=== PATIENT | female | born 1960 | race Caucasian/White ===

== ENCOUNTER → 2018-01-13 13:51 | Outpatient (CLI) | payer MEDICARE, SELFPAY ==
[2018-01-13 14:58] LABS: Amphetamine Urine VISTA NEGATIVE (<1000 ng/mL); Barbiturate Urine VISTA NEGATIVE (< 200 ng/mL); Benzodiazepine Urine VISTA NEGATIVE (< 200 ng/mL); Cocaine Urine VISTA NEGATIVE (< 300 ng/mL); Ecstacy Urine VISTA NEGATIVE (< 500 ng/mL); Methadone Urine VISTA NEGATIVE (< 300 ng/mL); PCP Urine VISTA NEGATIVE (< 25 ng/mL); THC Urine VISTA NEGATIVE (< 50 ng/mL); Vista UDS pH Range 6
== END ==
PROVIDERS: Family Provider Family Medicine; PCP Family Medicine; Visit Provider Anesthesiology Pain Medicine
DX: F11.20 Opioid dependence, uncomplicated (principal)
CPT/HCPCS: 80307

== ENCOUNTER → 2018-07-06 11:54 | Outpatient (CLI) | payer MEDICARE, SELFPAY ==
--- NOTE | 2018-07-06 12:00 | RAD_ITS ---
STUDY: X-RAY - RIGHT KNEE REASON FOR EXAM: Chronic pain. TECHNIQUE: 2 view(s) of the knee. COMPARISON: None. FINDINGS: Normal visualized distal femur. Normal visualized proximal tibia and fibula. Normal proximal tibiofibular articulation. Normal medial femorotibial compartment. Normal lateral femorotibial compartment. Normal patellofemoral articulation. The soft tissue structures are unremarkable. RAD/Knee 1 or 2 Views IMPRESSION: Normal x-ray examination of the right knee. Electronically Signed: Jasen Emery MD at 12:34 EDT Tel , Service support ,
== END ==
PROVIDERS: Family Provider Family Medicine; PCP Family Medicine; Visit Provider Anesthesiology Pain Medicine
DX: M25.561 Pain in right knee (principal)
CPT/HCPCS: 73560

== ENCOUNTER → 2018-08-30 11:39 | Outpatient (CLI) | payer MEDICARE, SELFPAY ==
[2018-08-30 12:38] LABS: Amphetamine Urine VISTA NEGATIVE (<1000 ng/mL); Barbiturate Urine VISTA NEGATIVE (< 200 ng/mL); Benzodiazepine Urine VISTA POSITIVE (< 200 ng/mL); Cocaine Urine VISTA NEGATIVE (< 300 ng/mL); Ecstacy Urine VISTA NEGATIVE (< 500 ng/mL); Methadone Urine VISTA NEGATIVE (< 300 ng/mL); PCP Urine VISTA NEGATIVE (< 25 ng/mL); THC Urine VISTA NEGATIVE (< 50 ng/mL); Vista UDS pH Range 6
== END ==
PROVIDERS: Family Provider Family Medicine; PCP Family Medicine; Referring Provider Anesthesiology Pain Medicine; Visit Provider Anesthesiology Pain Medicine
DX: F11.20 Opioid dependence, uncomplicated (principal)
CPT/HCPCS: 80307

== ENCOUNTER → 2019-03-15 | Outpatient (CLI) | payer MEDICARE, SELFPAY ==
[2018-05-13 15:50] VITALS: BMI 33.2
--- NOTE | 2019-03-15 11:49 | RAD_ITS ---
STUDY: X-RAY - PELVIS AND LEFT HIP REASON FOR EXAM: Female, 58 years old. Hip pain with history of prior lumbar spine surgery TECHNIQUE: 3 views of the pelvis and hip. COMPARISON: None. FINDINGS: There is a non-specific bowel gas pattern. Normal visualized soft tissue structures. Normal bilateral iliac wings, sacroiliac joints and visualized sacrum. Normal bilateral superior and inferior pubic rami. Normal pubic symphysis. Normal bilateral ischial tuberosities. Normal visualized femoral head. Normal acetabulum. Normal hip joint. RAD/HIP, UNI W/ Pelvis 2-3 Views IMPRESSION: Normal x-ray examination of the pelvis and hip. Electronically Signed: Jon Valencia MD at 17:22 EDT , Service support ,
== END | disposition home or self-care (01) ==
PROVIDERS: Family Provider Family Medicine; PCP Family Medicine; Referring Provider Anesthesiology Pain Medicine; Visit Provider Anesthesiology Pain Medicine
DX: M25.552 Pain in left hip (principal)
CPT/HCPCS: 73502

== ENCOUNTER → 2019-08-21 | Outpatient (CLI) | payer MEDICARE, SELFPAY ==
[2019-08-21 12:58] VITALS: BMI 33.2
[2019-08-21 14:47] LABS: Mucous, Urine 0 SEEN /hpf (<or=2+); Red Blood Cells-Urine 0 SEEN /hpf (0-5); Squamous Epithelial Cells - UA 0 SEEN /hpf (5-10); White Blood Cells 0 SEEN /hpf (0-5)
[2019-08-21 14:53] LABS: Color, Urine Yellow (Yellow); Glucose, Dipstick Normal (Normal); Ketone-Dipstick Negative (Negative); Leukocyte Esterase-Dipstick 25 /ul (Negative); Nitrite-Dipstick Negative (Negative); Occult Blood-Urine Negative /ul (Negative); Protein-Dipstick Negative (Negative); Urine Bilirubin Dipstick Negative (Negative); Urine Clarity Clear (Clear); Urine Urobilinogen 1 mg/dl (Normal)
[2019-08-21 14:59] LABS: Bacteria RARE /hpf (None Seen); Calcium Oxalate Crystals Ur 1+ /hpf (<or=2+)
== END | disposition home or self-care (01) ==
LOC: LABSPEC 14:01
PROVIDERS: Family Provider Family Medicine; PCP Family Medicine; Referring Provider Physician Assistant; Visit Provider Physician Assistant
DX: R30.0 Dysuria (principal)
CPT/HCPCS: 81001; 87086

== ENCOUNTER → 2020-10-23 13:52 | Outpatient (CLI) | payer MEDICARE, MEDICAID, SELFPAY ==
[2019-08-21 12:58] VITALS: BMI 33.2
[2020-10-23 15:24] LABS: Amphetamine Urine VISTA NEGATIVE (<1000 ng/mL); Barbiturate Urine VISTA NEGATIVE (< 200 ng/mL); Benzodiazepine Urine VISTA NEGATIVE (< 200 ng/mL); Cocaine Urine VISTA NEGATIVE (< 300 ng/mL); Ecstacy Urine VISTA NEGATIVE (< 500 ng/mL); Methadone Urine VISTA NEGATIVE (< 300 ng/mL); PCP Urine VISTA NEGATIVE (< 25 ng/mL); THC Urine VISTA NEGATIVE (< 50 ng/mL); Vista UDS pH Range 6
== END ==
PROVIDERS: PCP Family Medicine; Referring Provider Anesthesiology Pain Medicine; Visit Provider Anesthesiology Pain Medicine
DX: F11.20 Opioid dependence, uncomplicated (principal)
CPT/HCPCS: 80307

== ENCOUNTER → 2021-03-12 15:29 | Outpatient (CLI) | payer MEDICARE, MEDICAID, SELFPAY ==
[2019-08-21 12:58] VITALS: BMI 33.2
[2021-03-12 16:43] LABS: Amphetamine Urine VISTA NEGATIVE (<1000 ng/mL); Barbiturate Urine VISTA NEGATIVE (< 200 ng/mL); Benzodiazepine Urine VISTA NEGATIVE (< 200 ng/mL); Cocaine Urine VISTA NEGATIVE (< 300 ng/mL); Ecstacy Urine VISTA NEGATIVE (< 500 ng/mL); Methadone Urine VISTA NEGATIVE (< 300 ng/mL); PCP Urine VISTA NEGATIVE (< 25 ng/mL); THC Urine VISTA NEGATIVE (< 50 ng/mL); Vista UDS pH Range 5
== END ==
PROVIDERS: PCP Family Medicine; Referring Provider Anesthesiology Pain Medicine; Visit Provider Anesthesiology Pain Medicine
DX: F11.20 Opioid dependence, uncomplicated (principal)
CPT/HCPCS: 80307

== ENCOUNTER → 2022-03-30 | Outpatient (CLI) | payer MEDICARE, MEDICAID, SELFPAY ==
[2022-03-30 13:37] LABS: Amphetamine Urine VISTA NEGATIVE (<1000 ng/mL); Barbiturate Urine VISTA NEGATIVE (< 200 ng/mL); Benzodiazepine Urine VISTA NEGATIVE (< 200 ng/mL); Cocaine Urine VISTA NEGATIVE (< 300 ng/mL); Ecstacy Urine VISTA NEGATIVE (< 500 ng/mL); Methadone Urine VISTA NEGATIVE (< 300 ng/mL); PCP Urine VISTA NEGATIVE (< 25 ng/mL); THC Urine VISTA NEGATIVE (< 50 ng/mL); Vista UDS pH Range 6
== END | disposition home or self-care (01) ==
PROVIDERS: PCP Family Medicine; Visit Provider Anesthesiology Pain Medicine
DX: F11.20 Opioid dependence, uncomplicated (principal)
CPT/HCPCS: 80307

== ENCOUNTER → 2022-09-08 | Outpatient (CLI) | payer MEDICARE, MEDICAID, SELFPAY ==
[2022-09-08 11:17] LABS: Amphetamine Urine VISTA NEGATIVE (<1000 ng/mL); Barbiturate Urine VISTA NEGATIVE (< 200 ng/mL); Benzodiazepine Urine VISTA NEGATIVE (< 200 ng/mL); Cocaine Urine VISTA NEGATIVE (< 300 ng/mL); Ecstacy Urine VISTA NEGATIVE (< 500 ng/mL); Methadone Urine VISTA NEGATIVE (< 300 ng/mL); PCP Urine VISTA NEGATIVE (< 25 ng/mL); THC Urine VISTA NEGATIVE (< 50 ng/mL); Vista UDS pH Range 5
== END | disposition home or self-care (01) ==
PROVIDERS: PCP Family Medicine; Referring Provider Anesthesiology Pain Medicine; Visit Provider Anesthesiology Pain Medicine
DX: F11.20 Opioid dependence, uncomplicated (principal)
CPT/HCPCS: 80307

== ENCOUNTER → 2023-04-20 | Outpatient (CLI) | payer MEDICARE, MEDICAID, SELFPAY ==
[2023-04-20 13:36] LABS: Amphetamine Urine VISTA NEGATIVE (<1000 ng/mL); Barbiturate Urine VISTA NEGATIVE (< 200 ng/mL); Benzodiazepine Urine VISTA NEGATIVE (< 200 ng/mL); Cocaine Urine VISTA NEGATIVE (< 300 ng/mL); Ecstacy Urine VISTA NEGATIVE (< 500 ng/mL); Methadone Urine VISTA NEGATIVE (< 300 ng/mL); PCP Urine VISTA NEGATIVE (< 25 ng/mL); THC Urine VISTA NEGATIVE (< 50 ng/mL); Vista UDS pH Range 5
== END | disposition home or self-care (01) ==
PROVIDERS: PCP Family Medicine; Referring Provider Anesthesiology Pain Medicine; Visit Provider Anesthesiology Pain Medicine
DX: F11.20 Opioid dependence, uncomplicated (principal)
CPT/HCPCS: 80307

== ENCOUNTER → 2023-11-30 | Outpatient (CLI) | payer MEDICARE, MEDICAID, SELFPAY ==
--- OUTSIDE RECORDS SUMMARY | 2023-11-30 13:01 | XMS RPT_ITS | CCD ---
Author Name Unknown Address [facility] [place] [address] Organization [facility] Care Team Providers Care [employer] Name Role Phone ARTURO PEDROZA DO Primary Care Physician ARTURO PEDROZA DO Attending Unavailable ARTURO PEDROZA DO Primary Care Unavailable ARTURO PEDROZA DO Attending Unavailable YOVANY LEO, ARTURO Primary Care Unavailable ARTURO PEDROZA DO Attending Unavailable ARTURO PEDROZA DO Primary Care Unavailable ARTURO PEDROZA DO Attending Unavailable ARTURO PEDROZA DO Primary Care Unavailable YOVANY LEO, ARTURO Attending Unavailable YOVANY LEO, ARTURO Primary Care Unavailable Allergies Allergy Classification Reported Allergen(s) Allergy Type Date of Onset Reaction(s) Facility (7 sources) Cefaclor; Translations: [cefaclor] Drug Allergy Unknown [facility] Medications Current Medications Medication Drug Class(es) Dates Sig (Normalized) Sig (Original) acetaminophen 325 mg / oxyCODONE hydrochloride 5 mg oral tablet (7 sources) Opioid Agonist Start: 10-04-2019 take 1 tablet by mouth twice daily acetaminophen-oxy CODONE 325 mg-5 mg oral tablet take 1 tablet by mouth twice a day Start Date: 10/04/19 Status: Ordered ascorbic acid 500 mg oral tablet (2 sources) Vitamin C Start: 08-20-2020 Vitamin C 500 mg oral tablet Dose : 500 mg = 1 tab(s), Oral, qDay, # 30 tab(s), 0 Refill(s) Start Date: 08/20/20 Status: Ordered Flonase 50 mcg/inh nasal spray (2 sources) Start: 04-01-2021 Flonase 50 mcg/inh nasal spray Dose = 1 spray(s), Nasal, BID, 1 EA = 1 bottle, # 3 EA, 3 Refill(s), Pharmacy: [id number], Seasonal allergies, 171.5, cm, 04/01/21 9:32:00 EDT, Height, kg, 04/01/21 9:32:00 EDT, Dosing Weight Start Date: 04/01/21 Status: Ordered fluticasone propionate 0.05 mg/actuat metered dose nasal spray (5 sources) Corticosteroid Start: 11-05-2023 Flonase 50 mcg/inh nasal spray Dose = 1 spray(s), Nasal, BID, 1 EA = 1 bottle, # 3 EA, 3 Refill(s), Pharmacy: [facility] #[id number], Seasonal allergies, 171.5, cm, 11/05/23 8:33:00 EST, Height, kg, 11/05/23 8:33:00 EST, Dosing Weight Start Date: 11/05/23 Status: Ordered Problems Problem Classification Problem Date Documented Date Episodic/Chronic Anxiety disorders (7 sources) Mixed anxiety and depressive disorder 10-03-2019 Chronic Chronic obstructive pulmonary disease and bronchiectasis (7 sources) Chronic obstructive lung disease 03-26-2014 Chronic Disorders of lipid metabolism (7 sources) Hyperlipidemia 04-01-2021 Chronic Esophageal disorders (5 sources) Gastroesophageal reflux disease 10-04-2019 Chronic Essential hypertension (9 sources) Hypertensive disorder; Translations: [Essential (primary) hypertension] Onset: 01-14-2023 03-26-2014 Chronic Nutritional deficiencies (5 sources) Vitamin D deficiency 01-21-2022 Chronic Other nutritional; endocrine; and metabolic disorders (4 sources) Body mass index 30+ - obesity 07-16-2022 Chronic Other nutritional; endocrine; and metabolic disorders (3 sources) Morbid obesity 01-14-2023 Chronic Other screening for suspected conditions (not mental disorders or infectious disease) (5 sources) Viral screening status 04-15-2022 Episodic Other upper respiratory disease (7 sources) Seasonal allergy 04-03-2020 Chronic Residual codes; unclassified (3 sources) Needs influenza immunization 10-01-2020 Episodic Residual codes; unclassified (1 source) Screening due 11-04-2023 Episodic Screening and history of mental health and substance abuse codes (3 sources) Ex-tobacco user 01-14-2023 Episodic Spondylosis; intervertebral disc disorders; other back problems (7 sources) Backache 03-26-2014 Episodic Thyroid disorders (7 sources) Hypothyroidism 03-26-2014 Chronic Unclassified (5 sources) Cancer cervix screening status 04-15-2022 Unclassified (20 sources) Patient encounter status 04-15-2022 Unclassified (1 source) Influenza vaccination declined 11-05-2023 Urinary tract infections (7 sources) Urinary tract infectious disease 08-20-2020 Episodic Results Test Name Value Interpretation Reference Range Facil ity Vital Signs Date Time Vital Sign Value Performing Clinician Franki lity 12-19-2021 00:00-0500 Diastolic blood pressure 71 mm[Hg] RADHA WEBB MD [facility] 12-19-2021 00:00-0500 Heart rate 103 /min RADHA WEBB MD [facility] 12-19-2021 00:00-0500 Respiratory rate 18 /min RADHA WEBB MD [facility] 12-19-2021 00:00-0500 Systolic blood pressure 132 mm[Hg] RADHA WEBB MD [facility] 12-18-2021 19:30-0500 Body temperature 98.6 [degF] RADHA WEBB MD [facility] 12-18-2021 19:30-0500 Diastolic blood pressure 74 mm[Hg] RADHA WEBB MD [facility] 12-18-2021 19:30-0500 Heart rate 115 /min RADHA WEBB MD [facility] 12-18-2021 19:30-0500 Respiratory rate 20 /min RADHA WEBB MD [facility] 12-18-2021 19:30-0500 Systolic blood pressure 133 mm[Hg] RADHA WEBB MD [facility] Encounters Encounter Date Encounter Type Care Provider Facility Start: 11-19-2023 End: 11-20-2023 ambulatory ARTURO PEDROZA DO Facility:B Start: 11-19-2023 End: 11-19-2023 Patient encounter procedure ARTURO PEDROZA DO [facility] Start: 11-05-2023 End: 11-06-2023 ambulatory ARTURO PEDROZA DO Facility:B Start: 04-23-2023 End: 04-24-2023 ambulatory ARTURO PEDROZA DO Facility:B Start: 01-14-2023 End: 01-19-2023 ambulatory ARTURO PEDROZA DO Facility:B Start: 01-14-2023 End: 01-18-2023 Outreach Lab ARTURO PEDROZA DO [facility] Start: 01-14-2023 End: 01-15-2023 ambulatory ARTURO PEDROZA DO Facility:B Start: 01-14-2023 End: 01-14-2023 Patient encounter procedure ARTURO PEDROZA DO [facility] Start: 05-01-2022 End: 05-01-2022 Patient encounter procedure ARTURO PEDROZA DO [facility] Start: 04-15-2022 End: 04-15-2022 Patient encounter procedure ARTURO PEDROZA DO [facility] Start: 12-18-2021 End: 12-19-2021 Emergency department patient visit RADHA WEBB MD [facility] Start: 10-22-2021 End: 10-22-2021 Patient encounter procedure ARTURO PEDROZA DO [facility] Procedures Date Procedure Procedure Detail Performing Clinician Back structure, excl uding neck (body structure) ARTURO YOVANY DO Immunizations Immunization Date Immunization Notes Care Provider Kal duran 10-22-2021 influenza, injectabl e, quadrivalent, contains preservative; Translations: [Fluarix PF Quadrivalent ] ARTURO YOVANY DO [facility] 09-26-2020 influenza virus vaccine, unspecified formulation ARTURO HERRERAY DO [facility] 09-04-2019 influenza virus vaccine, unspecified formulation ARTURO PEDROZA DO [facility] 09-04-2019 tetanus toxoid, redu kumar diphtheria toxoid, and acellular pertussis vaccine, adsorbed ARTURO YOVANY DO [facility] 08-30-2018 influenza virus vaccine, unspecified formulation ARTURO PEDROZA DO [facility] 07-30-2017 influenza virus vaccine, unspecified formulation ARTURO PEDROZA DO [facility] 07-25-2015 influenza virus vaccine, unspecified formulation ARTURO PEDROZA DO [facility] Payers Date Payer Category Payer Unknown [id number] 1960 Unknown [id number] 1960 Unknown [id number] 1960 Unknown [id number] [id number] 1960 Unknown [id number] 1960 Unknown [id number] [id number] Social History Date Type Detail Facility Start: 08-20-2020 Ex-smoker (finding) [facility] Sex Assigned At Female [facility] Hospital Discharge instructions 12-19-2021 Note Date & Type Note Facility 12-19-2021 Hospital Discharg e instructions Patient Education 12/18/2021 23:27:12 COVID-19 Prevent the Spread of COVID-19 If You Are Sick (04/16/2020)(CUSTOM) Prevent the Spread of COVID-19 If You Are Sick Accessible version: https://www.cdc.gov/coronaviru s/2019-ncov/tp-nta-bgp-sick/st raa-ntms-qkts.html If you are sick with COVID-19 or think you might have COVID-19, follow the steps below to help protect other people in your home and community. Stay home except to get medical care. Stay home. Most people with COVID-19 have mild illness and are able to recover at home without medical care. Do not leave your home, except to get medical care. Do not visit public areas. Take care of yourself. Get rest and stay hydrated. Get medical care when needed. Call your doctor before you go to their office for care. But, if you have trouble breathing or other concerning symptoms, call 911 for immediate help. Avoid public transportation, ride-sharing, or taxis. Separate yourself from other people and pets in your home. As much as possible, stay in a specific room and away from other people and pets in your home. Also, you should use a separate bathroom, if available. If you need to be around other people or animals in or outside of the home, wear a cloth face covering. See COVID-19 and Animals if you have questions about pets: https://www.cdc.gov/coronaviru s/2019ncov/faq.html#PUVBB49tqo malenid Monitor your symptoms. Common symptoms of COVID-19 include fever and cough. Trouble breathing is a more serious symptom that means you should get medical attention. Follow care instructions from your healthcare provider and local health department. Your local health authorities will give instructions on checking your symptoms and reporting information. If you develop emergency warning signs for COVID-19 get medical attention immediately. Emergency warning signs include*: Trouble breathing Persistent pain or pressure in the chest New confusion or not able to be woken Bluish lips or face *This list is not all inclusive. Please consult your medical provider for any other symptoms that are severe or concerning to you. Call 911 if you have a medical emergency. If you have a medical emergency and need to call 911, notify the crusher and blender operator that you have or think you might have, COVID-19. If possible, put on a facemask before medical help arrives Call ahead before visiting your doctor. Call ahead. Many medical visits for routine care are being postponed or done by phone or telemedicine. If you have a medical appointment that cannot be postponed, call your doctor s office. This will help the office protect themselves and other patients. If you are sick, wear a cloth covering over your nose and mouth. You should wear a cloth face covering over your nose and mouth if you must be around other people or animals, including pets (even at home). You don t need to wear the cloth face covering if you are alone. If you can t put on a cloth face covering (because of trouble breathing for example), cover your coughs and sneezes in some other way. Try to stay at least 6 feet away from other people. This will help protect the people around you. Note: During the COVID-19 pandemic, medical grade facemasks are reserved for healthcare workers and some first responders. You may need to make a cloth face covering using a scarf or bandana. Cover your coughs and sneezes. Cover your mouth and nose with a tissue when you cough or sneeze. Throw used tissues in a lined trash can. Immediately wash your hands with soap and water for at least 20 seconds. If soap and water are not available, clean your hands with an alcohol-based hand nerve specialist that contains at least 60% alcohol. Clean your hands often. Wash your hands often with soap and water for at least 20 seconds. This is especially important after blowing your nose, coughing, or sneezing; going to the bathroom; and before eating or preparing food. Use hand nerve specialist if soap and water are not available. Use an alcohol-based hand nerve specialist with at least 60% alcohol, covering all surfaces of your hands and rubbing them together until they feel dry. Soap and water are the best option, especially if your hands are visibly dirty. \ Avoid touching your eyes, nose, and mouth with unwashed hands. Avoid sharing personal household items. Do not share dishes, drinking glasses, cups, eating utensils, towels, or bedding with other people in your home. Wash these items thoroughly after using them with soap and water or put them in the traffic control signaler. Clean all high-touch surfaces everyday. Clean and disinfect high-touch surfaces in your sick room and bathroom. Let someone else clean and disinfect surfaces in common areas, but not your bedroom and bathroom. If a caregiver or other person needs to clean and disinfect a sick person s bedroom or bathroom, they should do so on an as-needed basis. The caregiver/other person should wear a mask and wait as long as possible after the sick person has used the bathroom High-touch surfaces include phones, remote controls, counters, tabletops, doorknobs, bathroom fixtures, toilets, keyboards, tablets, and bedside tables. Clean and disinfect areas that may have blood, stool, or body fluids on them. Use household plate glass installer and disinfectants. Clean the area or item with soap and water or another detergent if it is dirty. Then use a household disinfectant. Be sure to follow the instructions on the label to ensure safe and effective use of the product. Many products recommend keeping the surface wet for several minutes to ensure germs are killed. Many also recommend precautions such as wearing gloves and making sure you have good ventilation during use of the product. Most EPA-registered household disinfectants should be effective. How to discontinue home isolation. People with COVID-19 who have stayed home (home isolated) can stop home isolation under the following conditions: If you will not have a test to determine if you are still contagious, you can leave home after these three things have happened: You have had no fever for at least 72 hours (that is three full days of no fever without the use of medicine that reduces fevers) AND other symptoms have improved (for example, when your cough or shortness of breath has improved) AND at least 10 days have passed since your symptoms first appeared. If you will be tested to determine if you are still contagious, you can leave home after these three things have happened: You no longer have a fever (without the use of medicine that reduces fevers) AND other symptoms have improved (for example, when your cough or shortness of breath has improved) AND you received two negative tests in a row, 24 hours apart. Your doctor will follow CDC guidelines. In all cases, follow the guidance of your healthcare provider and local health department. The decision to stop home isolation should be made in consultation with your healthcare provider and state and local health departments. Local decisions depend on local circumstances. cdc.gov/coronavirus Follow Up Care 12/18/2021 19:18:22 With:ARTURO PEDROZA DO Address: [phone] When:2-4 days [facility] Evaluation + Plan note Note Date & Type Note Facility Evaluation + Plan note Future Appointments Appointment Date:01/21/2022 08:00:00 AM Scheduled Provider:ARTURO PEDROZA DO Location:[facility] Appointment Type:PC OV Follow Up [facility] Evaluation + Plan note Radiology Note Date & Type Note Facility Evaluation + Plan note Future Appointments Appointment Date:07/16/2022 08:00:00 AM Scheduled Provider:ARTURO PEDROZA DO Location:[facility] Appointment Type:PC OV Follow Up Future Scheduled TestsMA Mammo Screening Bilateral w/ Holden 04/15/22 [facility] Evaluation + Plan note Radiology Note Date & Type Note Facility Evaluation + Plan note Future Appointments Appointment Date:07/16/2022 08:00:00 AM Scheduled Provider:ARTURO PEDROZA DO Location:[facility] Appointment Type:PC OV Follow Up Future Scheduled TestsUS Breast Right Complete 04/29/22 [facility] Evaluation + Plan note LaboratoryRadiology Note Date & Type Note Facility Evaluation + Plan note Future Appointments Appointment Date:04/21/2023 11:00:00 AM Scheduled Provider:ARTURO PEDROZA DO Location:[facility] Appointment Type:PC Wellness Medicare Future Scheduled TestsThyroid Stimulating Hormone 01/16/Lipid Profile 2/23Vitamin D Level 2Complete Metabolic Panel 2/US Breast Right Complete 04/29/22 [facility] Evaluation + Plan note LaboratoryRadiology Note Date & Type Note Facility Evaluation + Plan note Future Appointments Appointment Date:04/21/2023 11:00:00 AM Scheduled Provider:ARTURO PEDROZA DO Location:[facility] Appointment Type:PC Wellness Medicare Future Scheduled TestsThyroid Stimulating Hormone 02/26/23Thyroid Stimulating Hormone 01/16/23Free T4 02/26/23Free T3 02/26/23Lipid Profile 2//Vitamin D Level 01/16/23Complete Metabolic Panel 01/16/23US Breast Right Complete 04/29/22 [facility] Evaluation + Plan note LaboratoryRadiology Note Date & Type Note Facility Evaluation + Plan note Future Appointments Appointment Date:05/10/2024 09:00:00 AM Scheduled Provider:ARTURO PEDORZA DO Location:[facility] Appointment Type: Wellness Medicare Future Scheduled TestsThyroid Stimulating Hormone 01/16/23MA Mammo Screening Bilateral w/ Holden 05/06/23 [facility] Hospital course Narrative Note Date & Type Note Facility Hospital course Narrative No data available for this section [facility] Hospital Discharge instructions Note Date & Type Note Facility Hospital Discharge instructions No data available for this section [facility] Progress note Note Date & Type Note Facility Progress note No data available for this section [facility] Summary Purpose Family History No Family History Records Found Advance Directives No Advanced Directives Records Found Additional Source Comments Care Team (unrecognized sect ion and content) Personnel Name: ARTURO PEDROZA DO Address: [address] [place] [address] Personnel Name: ARTURO PEDROZA DO Address: [address] [place] [address] Care Team Personnel Name: ZAMZAM HARE MD Member Role: Pain Management Address: Address: [address] [place] [address] Name: ARTURO PEDROZA DO Position: P4 Physician - Primary Care Member Role: Primary Care Physician Address: Address: [address] [place] [address] Care Team Related Persons Name: SARAH SAN Name: MICHOACANO CHAMBERS Care Team (unrecognized sect ion and content) Care Team Personnel Name: ZAMZAM HARE MD Member Role: Pain Management Address: Address: [address] [place] [address] Name: ARTURO PEDROZA DO Position: P4 Physician - Primary Care Member Role: Primary Care Physician Address: Address: [address] [place] [address] Care Team Related Persons Name: SARAH SAN Name: MICHOACANO CHAMBERS Care Team Personnel Name: ZAMZAM HARE MD Member Role: Pain Management Address: Address: [address] [place] [address] Name: ARTURO PEDROZA DO Position: P4 Physician - Primary Care Member Role: Primary Care Physician Address: Address: [address] [place] [address] Care Team Related Persons Name: SARAH SAN Name: MICHOACANO CHAMBERS INFORMATION SOURCE (unrecogn ized section and content) FOR RECORDS PERTAINING TO PATIENTS WHO ARE OR HAVE BEEN ENROLLED IN A CHEMICAL DEPENDENCY/SUBSTANCEABUSE PROGRAM, SOME INFORMATION MAY BE OMITTED. This clinical summary was aggregated from multiple sources. Caution should be exercised in using it in the provision of clinical care. This summary normalizes information from multiple sources, and as a consequence, information in this document may materially change the coding, format and clinical context of patient data. In addition, data may be omitted in some cases. CLINICAL DECISIONS SHOULD BE BASED ON THE PRIMARY CLINICAL RECORDS. [employer] [facility]. provides no warranty or guarantee of the accuracy or completeness of information in this document.
[2023-11-30 13:31] LABS: Amphetamine Urine VISTA NEGATIVE (<1000 ng/mL); Barbiturate Urine VISTA NEGATIVE (< 200 ng/mL); Benzodiazepine Urine VISTA NEGATIVE (< 200 ng/mL); Cocaine Urine VISTA NEGATIVE (< 300 ng/mL); Ecstacy Urine VISTA NEGATIVE (< 500 ng/mL); Methadone Urine VISTA NEGATIVE (< 300 ng/mL); PCP Urine VISTA NEGATIVE (< 25 ng/mL); THC Urine VISTA NEGATIVE (< 50 ng/mL); Vista UDS pH Range 5
== END | disposition home or self-care (01) ==
LOC: LAB 12:39
PROVIDERS: PCP Family Medicine; Referring Provider Anesthesiology Pain Medicine; Visit Provider Anesthesiology Pain Medicine
DX: F11.20 Opioid dependence, uncomplicated (principal)
CPT/HCPCS: 80307

== ENCOUNTER → 2025-01-25 | Outpatient (CLI) | payer MEDICARE, MEDICAID, SELFPAY ==
[2025-01-25 16:32] LABS: Amphetamine Urine NEGATIVE (<1000 ng/mL); Barbiturate Urine NEGATIVE (< 200 ng/mL); Benzodiazepine Urine NEGATIVE (< 200 ng/mL); Buprenorphine Urine NEGATIVE (< 200 ng/mL); Cocaine Urine NEGATIVE (< 300 ng/mL); Fentanyl, Urine NEGATIVE; Methadone Urine NEGATIVE (< 300 ng/mL); Opiates Urine NEGATIVE (< 300 ng/mL); Oxycodone, Urine PRESUMTIVE POSITIVE (< 100 ng/mL); PCP Urine NEGATIVE (< 25 ng/mL); THC Urine NEGATIVE (< 50 ng/mL)
== END | disposition home or self-care (01) ==
LOC: LAB 13:01
PROVIDERS: PCP Family Medicine; Referring Provider Anesthesiology Pain Medicine; Visit Provider Anesthesiology Pain Medicine
DX: F11.20 Opioid dependence, uncomplicated (principal)
CPT/HCPCS: 80307

== ENCOUNTER → 2025-08-28 | Outpatient (CLI) | payer MEDICARE, MEDICAID, SELFPAY ==
[2025-08-28 11:09] LABS: Barbiturate Urine NEGATIVE (< 200 ng/mL); Benzodiazepine Urine NEGATIVE (< 200 ng/mL); PCP Urine NEGATIVE (< 25 ng/mL); THC Urine NEGATIVE (< 50 ng/mL)
== END | disposition home or self-care (01) ==
LOC: LAB 09:57
PROVIDERS: PCP Family Medicine; Referring Provider Anesthesiology Pain Medicine; Visit Provider Anesthesiology Pain Medicine
DX: F11.20 Opioid dependence, uncomplicated (principal)
CPT/HCPCS: 80307